=== PATIENT | male | born 1965 | race Two or more races ===

== ENCOUNTER 2019-02-08 07:24 | Emergency (ER) | payer MEDICAID ==
[~2019-02-08] VITALS: Ht 165.1 cm; Wt 74.8 kg
--- NOTE | 2019-02-08 07:33 | Emergency Room Report ---
History of Present Illness General Chief Complaint: epigastric pain Source: Patient Present Illness HPI 53-year-old male presents with epigastric pain x2 weeks, patient has felt a little more fatigued, he endorses some burning chest pain seems to be worsened when he eats or drinks alcohol, he denies any dyspnea on exertion he does endorse some shortness of breath from the reflux, severity is moderate, constant , no alleviating factors. He denies any medical problems he states that his mother has diabetes and he denies any cardiac history in his family he has never had a stress test. Allergies: Coded Allergies: No Known Allergies (Unverified , 02/08/19) Patient History Past Medical History: see triage record Social History: Reports: smoking, alcohol use Reviewed Nursing Documentation: PMH: Agreed; PSxH: Agreed Review of Systems All Other Systems: negative except mentioned in HPI Physical Exam Vital Signs Date Time Temp Pulse Resp B/P (MAP) Pulse Ox O2 Delivery O2 Flow Rate FiO2 02/08/19 07:34 98.8 60 18 148/85 (106) 97 Room Air Sp02 EP Interpretation: reviewed, normal General Appearance: well appearing, no apparent distress, alert Head: normocephalic, atraumatic Eyes: bilateral eye PERRL, bilateral eye EOMI ENT: uvula midline, moist mucus membranes Neck: supple, thyroid normal, supple/symm/no masses Respiratory: lungs clear, no respiratory distress, no retraction, no accessory muscle use Cardiovascular #1: normal peripheral pulses, regular rate, rhythm, no edema, no gallop, no murmur Gastrointestinal: non tender, soft, no guarding, no rebound Musculoskeletal: normal inspection Neurologic: alert, oriented x3 Psychiatric: mood/affect normal Skin: no rash, warm/dry Medical Decision Making Diagnostic Impression: Primary Impression: Chest pain Qualified Codes: R07.9 - Chest pain, unspecified ER Course 53-year-old male presents with atypical chest pain, no dyspnea on exertion, has been constant for 2 weeks was recently evaluated at an outside hospital with a negative work-up. No evidence of ACS, pulmonary embolism, pneumothorax, pneumonia. Historically not abrupt in onset, tearing or ripping, pulses symmetric, no evidence of aortic dissection. EKG, chest x-ray, troponin all negative Given GI cocktail reevaluation 8:37 AM, his symptoms have significantly improved Patient possibly with gastritis Counseled patient to have outside stress test as well as follow-up with GI doctor Disposition home with return precautions Laboratory Tests Test 02/08/19 07:40 White Blood Count 5.8 K/UL (4.8-10.8) Red Blood Count 5.94 M/UL (4.70-6.10) Hemoglobin 15.6 G/DL (14.2-18.0) Hematocrit 49.6 % (42.0-52.0) Mean Corpuscular Volume 83 FL (80-99) Mean Corpuscular Hemoglobin 26.3 PG (27.0-31.0) L Mean Corpuscular Hemoglobin Concent 31.5 G/DL (32.0-36.0) L Red Cell Distribution Width 13.1 % (11.6-14.8) Platelet Count 238 K/UL (150-450) Mean Platelet Volume 7.0 FL (6.5-10.1) Neutrophils (%) (Auto) 66.5 % (45.0-75.0) Lymphocytes (%) (Auto) 23.9 % (20.0-45.0) Monocytes (%) (Auto) 5.9 % (1.0-10.0) Eosinophils (%) (Auto) 2.6 % (0.0-3.0) Basophils (%) (Auto) 1.1 % (0.0-2.0) Prothrombin Time 10.2 SEC (9.30-11.50) Prothrombin Time INR 1.0 (0.9-1.1) PTT 25 SEC (23-33) Sodium Level 142 MMOL/L (136-145) Potassium Level 4.1 MMOL/L (3.5-5.1) Chloride Level 108 MMOL/L (98-107) H Carbon Dioxide Level 25 MMOL/L (21-32) Anion Gap 10 mmol/L (5-15) Blood Urea Nitrogen 15 mg/dL (7-18) Creatinine 0.7 MG/DL (0.55-1.30) Estimate Glomerular Filtration Rate > 60 mL/min (>60) Glucose Level 108 MG/DL (74-106) H Calcium Level 8.8 MG/DL (8.5-10.1) Total Bilirubin 0.5 MG/DL (0.2-1.0) Aspartate Amino Transferase (AST) < 5 U/L (15-37) L Alanine Aminotransferase (ALT) 45 U/L (12-78) Alkaline Phosphatase 139 U/L (46-116) H Total Creatine Kinase 161 U/L (26-308) Creatine Kinase MB 1.1 NG/ML (0.0-3.6) Creatine Kinase MB Relative Index 0.6 Troponin I 0.000 ng/mL (0.000-0.056) Pro-B-Type Natriuretic Peptide 44 pg/mL (0-125) Total Protein 8.0 G/DL (6.4-8.2) Albumin 4.1 G/DL (3.4-5.0) Globulin 3.9 g/dL Lipase 183 U/L (73-393) Thyroid Stimulating Hormone (TSH) 2.853 uiU/mL (0.358-3.740) Free Thyroxine Pending Free Triiodothyronine 3.1 pg/mL (2.3-4.2) EKG Diagnostic Results EKG Time: 07:31 EP Interpretation: NSR, rate 60, QTc 402, no acute ST elevations, normal axis Rhythm Strip Diag. Results Rhythm Strip Time: 07:44 EP Interpretation: yes Rate: 60 Rhythm: NSR, no PVC's, no ectopy Chest X-Ray Diagnostic Results Chest X-Ray Diagnostic Results : Chest X-Ray Ordered: Yes # of Views/Limited/Complete: 1 View Indication: Chest Pain EP Interpretation: Yes Interpretation: no consolidation, no effusion, no pneumothorax, no acute cardiopulmonary disease Impression: No acute disease Electronically Signed by: Jaydon Hayes MD Disposition: HOME, SELF-CARE Condition: Stable Scripts Famotidine (FAMOTIDINE) 20 Mg Tablet 20 MG ORAL TWICE A DAY, #60 TAB 0 Refills Prov: Jaydon Hayes MD 02/08/19 Referrals: [facility] Patient Instructions: Heartburn, Nonspecific Chest Pain Additional Instructions: The patient was provided with discharge instructions, notified to follow-up with a primary care doctor and or specialist in the next 24-48 hours, and to return to the ED if they have worsening of their symptoms. Please note that this report is being documented using [employer] technology. This can lead to erroneous entry secondary to incorrect interpretation by the dictating instrument. Jaydon Hayes MD Feb 08, 2019 07:33
[2019-02-08 07:45] VITALS: BP 157/71
[2019-02-08] MEDS ORDERED: Lidocaine 2% Visc 15ml soln ORAL ONE (07:45)
[2019-02-08] MEDS ORDERED: Mylanta II UD 30ml ORAL ONE (07:45)
[2019-02-08 07:49] LABS: BASOPHILS % (AUTO) 1.1 % (0.0-2.0); EOSINOPHILS % (AUTO) 2.6 % (0.0-3.0); HEMATOCRIT 49.6 % (42.0-52.0); HEMOGLOBIN 15.6 G/DL (14.2-18.0); LYMPHOCYTES % (AUTO) 23.9 % (20.0-45.0); MEAN CORPUSCULAR VOLUME 83 FL (80-99); MONOCYTES % (AUTO) 5.9 % (1.0-10.0); NEUTROPHILS % (AUTO) 66.5 % (45.0-75.0); PLATELET COUNT 238 K/UL (150-450); RED BLOOD COUNT 5.94 M/UL (4.70-6.10); RED CELL DISTRIBUTION WIDTH 13.1 % (11.6-14.8); WHITE BLOOD COUNT 5.8 K/UL (4.8-10.8)
--- NOTE | 2019-02-08 07:49 | NUR ---
ED Nurse Note: Patient walked in to ER from home for chest pain and abdominal pain for 2 weeks. pt aao x4 and ambulatory. skin clean and intact. calm and cooperative. no acute distress noted at this time. pt is in gown and on doll dresser.
--- NOTE | 2019-02-08 07:58 | NUR ---
ED Nurse Note: x-ray at bedside.
[2019-02-08 08:07] LABS: BLOOD UREA NITROGEN 15 mg/dL (7-18); CHLORIDE 108 MMOL/L (98-107); POTASSIUM 4.1 MMOL/L (3.5-5.1); SODIUM 142 MMOL/L (136-145)
[2019-02-08 08:15] LABS: ALANINE AMINOTRANSFERASE 45 U/L (12-78); ALBUMIN 4.1 G/DL (3.4-5.0); ALKALINE PHOSPHATASE 139 U/L (46-116); ANION GAP 10 mmol/L (5-15); ASPARTATE AMINO TRANSFERASE < 5 U/L (15-37); BILIRUBIN,TOTAL 0.5 MG/DL (0.2-1.0); CALCIUM 8.8 MG/DL (8.5-10.1); CARBON DIOXIDE 25 MMOL/L (21-32); CREATINE KINASE 161 U/L (26-308); CREATININE 0.7 MG/DL (0.55-1.30)
[2019-02-08] MEDS ORDERED: FAMOTIDINE20 MG ORAL (08:40)
[2019-02-08 09:12] LABS: CKMB 1.1 NG/ML (0.0-3.6)
[2019-02-08 09:49] VITALS: BP 107/61
--- NOTE | 2019-02-08 09:51 | NUR ---
ED Nurse Note: Pt cleared by health care Provider for discharge. DC instructions/prescription was given and explained to pt and verbalized understanding of teachings. All medical deviecs such as ID band removed. Pt is AAO x4, ambulatory and left with all personal belongings.
--- NOTE | 2019-02-08 11:18 | Diagnostic Imaging Report ---
Indication: Chest pain Technique: One view of the chest Comparison: none Findings: Lungs and pleural spaces are clear. Heart size is normal. There is minimal atelectasis at the left lung base Impression: No acute process
--- NOTE | 2019-02-08 11:53 | Cardiology Report ---
APPROVED REPORT EKG Measurement Heart [id number] Normal sinus rhythm Normal ECG
== END 2019-02-08 09:50 | disposition home or self-care (01) ==
LOC: EMR 08:05
DX: R07.9 Chest pain, unspecified (principal); F17.200 Nicotine dependence, unspecified, uncomplicated
CPT/HCPCS: 36415; 71045; 80053; 82550; 82553; 83690; 83880; 84439; 84443; 84481; 84484; 85025; 85610; 85730; 93005; 96361; 96374; 96375; J2405; S0028; Z7502; 99284

== ENCOUNTER 2019-03-06 22:13 | Emergency (ER) | payer MEDICAID ==
[~2019-03-06] VITALS: Ht 160 cm; Wt 72.6 kg
[~2019-03-06 22:13] MED LIST: FAMOTIDINE20 MG ORAL
--- NOTE | 2019-03-06 22:20 | NUR ---
ED Nurse Note: Patient has complaints of chest pain x 1 day with nausea and vomitting.
--- NOTE | 2019-03-06 22:36 | Emergency Room Report ---
History of Present Illness General Chief Complaint: Chest Pain Source: Patient Present Illness HPI Disclaimer: Please note that this report is being documented using [employer] technology. This can lead to erroneous entry secondary to incorrect interpretation by the dictating instrument. HPI: 53-year-old male with a history of anxiety previously treated with Klonopin presents for evaluation of chest pain, cough, vomiting and diarrhea. States he has had a nonproductive cough without fever for the past week however seems to be getting worse over the past few days. Today as he was getting ready for bed approximately 2 hours ago he started to feel a sharp stabbing pain in the left chest wall that was exacerbated by movement and relieved by rest. He denies any new shortness of breath. He had an episode of nonbloody, nonbilious emesis as well as some loose stools throughout the day today. States he feels like he was having an anxiety attack at home and came to the emergency department for evaluation. He noted some numbness and tingling in his fingertips and around his mouth. Denies diaphoresis, loss of consciousness , head injury or chest wall injury. He was seen in the emergency department for chest pain and gastritis several weeks ago and states it is somewhat similar to that presentation however slightly more intense and now with vomiting and diarrhea. He has not yet been able to see his PMD. Ran out of Klonopin approximately 10 days ago. PMH: Denies PSH: Denies Allergies: Denies Social Hx: Occasional alcohol use Allergies: Coded Allergies: No Known Allergies (Unverified , 02/08/19) Nursing Documentation-PMH Past Medical History: No Stated History Review of Systems All Other Systems: negative except mentioned in HPI Physical Exam Vital Signs Date Time Temp Pulse Resp B/P (MAP) Pulse Ox O2 Delivery O2 Flow Rate FiO2 03/06/19 22:14 97.5 71 19 147/95 (112) 95 Room Air General: Awake and alert, no acute distress HEENT: NC/AT. EOMI. mucous membranes Neck: Supple, trachea midline Chest Wall: No tenderness, no deformity Cardiovascular: RRR. S1 and S2 normal. No murmur appreciated Resp: Normal work of breathing. No cough, wheezing or crackles appreciated Abdomen: Abdomen is soft, nondistended. Nontender Skin: Intact. No abrasions, laceration or rash over the exposed skin MSK: Normal tone and bulk. Moving all extremities. No obvious deformity. Neuro: Awake and alert. Mentating appropriately. Medical Decision Making Diagnostic Impression: Primary Impression: Nausea vomiting and diarrhea ER Course 53-year-old male presenting for evaluation of 1 week cough and 2 hours of sharp stabbing left-sided chest pain, nausea with vomiting and loose stools throughout the day today. Differential includes but is not limited to ACS, angina, anxiety, gastritis, gastroenteritis, GERD, dehydration, musculoskeletal pain, viral syndrome, pneumonia, bronchitis, pneumothorax, PE. With a prolonged cough pneumonia must be evaluated for though given the GI symptoms started today dehydration and gastroenteritis likely from a viral cause her most likely. The patient's vital signs are within normal limits he has no risk factors for pulmonary embolism. We will start a broad cardiac and infectious work-up including EKG, chest x-ray, broad labs. Will give IV fluids for hydration. Antiemetics for nausea. Toradol for pain. Laboratory Tests Test 03/06/19 22:38 03/07/19 01:35 White Blood Count 7.7 K/UL (4.8-10.8) Red Blood Count 5.47 M/UL (4.70-6.10) Hemoglobin 14.5 G/DL (14.2-18.0) Hematocrit 45.1 % (42.0-52.0) Mean Corpuscular Volume 82 FL (80-99) Mean Corpuscular Hemoglobin 26.5 PG (27.0-31.0) L Mean Corpuscular Hemoglobin Concent 32.1 G/DL (32.0-36.0) Red Cell Distribution Width 11.7 % (11.6-14.8) Platelet Count 259 K/UL (150-450) Mean Platelet Volume 6.3 FL (6.5-10.1) L Neutrophils (%) (Auto) 65.5 % (45.0-75.0) Lymphocytes (%) (Auto) 22.2 % (20.0-45.0) Monocytes (%) (Auto) 8.4 % (1.0-10.0) Eosinophils (%) (Auto) 2.9 % (0.0-3.0) Basophils (%) (Auto) 0.9 % (0.0-2.0) Sodium Level 138 MMOL/L (136-145) Potassium Level 3.8 MMOL/L (3.5-5.1) Chloride Level 105 MMOL/L (98-107) Carbon Dioxide Level 24 MMOL/L (21-32) Anion Gap 9 mmol/L (5-15) Blood Urea Nitrogen 18 mg/dL (7-18) Creatinine 0.8 MG/DL (0.55-1.30) Estimate Glomerular Filtration Rate > 60 mL/min (>60) Glucose Level 115 MG/DL (74-106) H Calcium Level 9.1 MG/DL (8.5-10.1) Total Bilirubin 0.2 MG/DL (0.2-1.0) Aspartate Amino Transferase (AST) 24 U/L (15-37) Alanine Aminotransferase (ALT) 53 U/L (12-78) Alkaline Phosphatase 164 U/L (46-116) H Total Creatine Kinase 112 U/L (26-308) Creatine Kinase MB 1.7 NG/ML (0.0-3.6) Creatine Kinase MB Relative Index 1.5 Troponin I 0.000 ng/mL (0.000-0.056) 0.000 ng/mL (0.000-0.056) Total Protein 7.4 G/DL (6.4-8.2) Albumin 3.8 G/DL (3.4-5.0) Globulin 3.6 g/dL Albumin/Globulin Ratio 1.1 (1.0-2.7) Lipase 158 U/L (73-393) EKG Diagnostic Results EKG Time: 22:23 Rate: normal Rhythm: NSR ST Segments: no acute changes Other Impression Sinus rhythm, normal axis, normal intervals, no ST segment changes Rhythm Strip Diag. Results Rhythm Strip Time: 22:23 EP Interpretation: yes Rate: 70s Rhythm: NSR, no PVC's, no ectopy Chest X-Ray Diagnostic Results Chest X-Ray Diagnostic Results : # of Views/Limited/Complete: 1 View Indication: Chest Pain EP Interpretation: Yes Interpretation: no effusion, no pneumothorax, other - Possible consolidation in the left lower lobe Impression: Other - Possible atelectasis versus consolidation Electronically Signed by: Electronically signed by Dr. Deon Subramanian Reevaluation Time: 02:06 Last Vital Signs Date Time Temp Pulse Resp B/P (MAP) Pulse Ox O2 Delivery O2 Flow Rate FiO2 03/06/19 22:14 97.5 71 19 147/95 (112) 95 Room Air Reevaluation Impression EKG unremarkable, labs have returned largely within normal limits, troponins are negative x2. Chest x-ray shows a possible consolidation with atelectasis in the left lower lobe however radiology interpretation shows that it is unchanged from a previous x-ray and may represent either a pericardial fat pad or atelectasis. They recommend follow-up not emergently with unenhanced CT in 8 to 10 weeks to reevaluate. Given his prolonged cough we will treat with a short course of antibiotics. He also be treated with Zofran and antacids for possible gastroenteritis. We will follow-up with PMD as scheduled. Discussed reasons to return to the emergency department. He understands and agrees with this treatment plan. Disposition: HOME, SELF-CARE Condition: Stable Scripts Omeprazole (OMEPRAZOLE) 20 Mg Capsule.dr 20 MG ORAL DAILY for 14 Days, #14 CAP Prov: Deon Subramanian MD 03/07/19 Ondansetron Odt* (ZOFRAN ODT*) 4 Mg Tab.rapdis 4 MG BC EVERY 6 HOURS PRN for Nausea & Vomiting, #20 TAB 0 Refills Prov: Deon Subramanian MD 03/07/19 Azithromycin* (ZITHROMAX*) 250 Mg Tablet 250 MG ORAL DAILY for 5 Days, #6 TAB 0 Refills Take two tables once daily for 1 day, then one tablet once daily for 4 days. Prov: Deon Subramanian MD 03/07/19 Deon Subramanian MD Mar 06, 2019 22:36
[2019-03-06 22:41] VITALS: BP 147/95
[2019-03-06] MEDS ORDERED: Ketorolac 30mg Inj IV ONE (22:45)
[2019-03-06 22:53] VITALS: BP 130/85
[2019-03-06 22:57] LABS: BASOPHILS % (AUTO) 0.9 % (0.0-2.0); EOSINOPHILS % (AUTO) 2.9 % (0.0-3.0); HEMATOCRIT 45.1 % (42.0-52.0); HEMOGLOBIN 14.5 G/DL (14.2-18.0); LYMPHOCYTES % (AUTO) 22.2 % (20.0-45.0); MEAN CORPUSCULAR VOLUME 82 FL (80-99); MONOCYTES % (AUTO) 8.4 % (1.0-10.0); NEUTROPHILS % (AUTO) 65.5 % (45.0-75.0); PLATELET COUNT 259 K/UL (150-450); RED BLOOD COUNT 5.47 M/UL (4.70-6.10); RED CELL DISTRIBUTION WIDTH 11.7 % (11.6-14.8); WHITE BLOOD COUNT 7.7 K/UL (4.8-10.8)
[2019-03-06 23:08] LABS: ANION GAP 9 mmol/L (5-15); BLOOD UREA NITROGEN 18 mg/dL (7-18); CALCIUM 9.1 MG/DL (8.5-10.1); CARBON DIOXIDE 24 MMOL/L (21-32); CHLORIDE 105 MMOL/L (98-107); CREATININE 0.8 MG/DL (0.55-1.30); POTASSIUM 3.8 MMOL/L (3.5-5.1); SODIUM 138 MMOL/L (136-145)
[2019-03-06 23:22] LABS: ALANINE AMINOTRANSFERASE 53 U/L (12-78); ALBUMIN 3.8 G/DL (3.4-5.0); ALBUMIN/GLOBULIN RATIO 1.1 (1.0-2.7); ALKALINE PHOSPHATASE 164 U/L (46-116); ASPARTATE AMINO TRANSFERASE 24 U/L (15-37); BILIRUBIN,TOTAL 0.2 MG/DL (0.2-1.0); CKMB 1.7 NG/ML (0.0-3.6); CREATINE KINASE 112 U/L (26-308)
[2019-03-07 00:06] VITALS: BP 121/72
--- NOTE | 2019-03-07 00:09 | NUR ---
ED Nurse Note: Patient tolerated fluids and medication well. Patient is resting comfortably with no s/s/ of acute distress. vital signs stable and documented. CXR completed, awaiting discharge instructions.
--- NOTE | 2019-03-07 00:25 | Diagnostic Imaging Report ---
EXAM: XR Chest, 1 View CLINICAL HISTORY: COUGH TECHNIQUE: Frontal view of the chest. COMPARISON: 02 08 2019 FINDINGS: Lungs: See below. Pleural space: Unremarkable. No pneumothorax. Heart: Mild patchy opacity at the left base laterally similar to the prior study, and potentially bilingual inside sales representative of pericardial fat or atelectasis. Mediastinum: Unremarkable. Bones joints: Unremarkable. IMPRESSION: 1. Mild patchy opacity at the left base laterally similar to the prior study, and potentially bilingual inside sales representative of pericardial fat or atelectasis. 2. Otherwise no acute cardio pulmonary disease. 3. If there is continued concern, consider PA and lateral chest radiographs or CT. 4. Recommend follow-up nonemergent unenhanced CT chest in 8-10 weeks to evaluate resolution of left base finding.
--- NOTE | 2019-03-07 00:57 | NUR ---
ED Nurse Note: Patient and umu reports patient has headache 7/10 on pain scale. Patient usually does not have headache at home. ERMD informed.
[2019-03-07] MEDS ORDERED: Acetaminophen 500mg (ES) tab ORAL ONE (01:00)
[2019-03-07] MEDS ORDERED: OMEPRAZOLE20 M2 ORAL (02:09)
[2019-03-07] MEDS ORDERED: ZITHROMAX250 MG ORAL (02:09)
[2019-03-07] MEDS ORDERED: ONDANSETRON ODT4 MG BC (02:09)
--- NOTE | 2019-03-07 02:28 | NUR ---
ED Nurse Note: Patietn cleared for discharge, verbalized understanding of discharge instructions, ID band removed, Iv removed. PAtient departed with spouse and all belongings.
[2019-03-07 02:29] VITALS: BP 121/72
--- NOTE | 2019-03-09 14:17 | Cardiology Report ---
APPROVED REPORT EKG Measurement Heart [id number] Normal sinus rhythm Normal ECG
== END 2019-03-07 02:29 | disposition home or self-care (01) ==
LOC: EMR 22:49
DX: R11.2 Nausea with vomiting, unspecified (principal); R19.7 Diarrhea, unspecified; R07.9 Chest pain, unspecified; F41.9 Anxiety disorder, unspecified
CPT/HCPCS: 36415; 71045; 80053; 82550; 82553; 83690; 84484; 85025; 93005; 96361; 96374; 96375; J1885; J2405; Z7502; 99284

== ENCOUNTER 2020-05-12 16:50 | Emergency (ER) | payer MEDICAID ==
[~2020-05-12] VITALS: Ht 165.1 cm; Wt 77.1 kg
[~2020-05-12 16:50] MED LIST changes: +BACTRIM-DS1 EA ORAL; +CEPHALEXIN500 MG ORAL; +IBUPROFEN600 MG ORAL; +OMEPRAZOLE20 M2 ORAL; +ONDANSETRON ODT4 MG BC; +ZITHROMAX250 MG ORAL
[2020-05-12 17:20] VITALS: BP 132/81
--- NOTE | 2020-05-12 17:20 | NUR ---
ED Nurse Note: Pt walked into ED with complaint of chest and rib pain for 4 days. Pt states it is sharlene pain mid chest, non radiating. Pt denies nausea, vomiting, diarrhea. He is alert and orientedx4, ambulatory. IV established and blood and urine sent.
--- NOTE | 2020-05-12 17:52 | Emergency Room Report ---
History of Present Illness General Chief Complaint: Pain Source: Patient Present Illness HPI 54 YO male presents to the ED c/o 01/09 in severity Pain in the left side of his abdomen and in the mid chest region x 2 days. pt. reports diarrhea and nausea x 4 days. Pt. denies blood in the stool or vomit. He denies black tarry stools. Pt. 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 Pt. denies being placed on antibiotics. Pt. denies fevers. He reports episode of severe left lower abdominal pain, nausea and some dizziness today. he denies cardiac hx. Pt. also reports an associated progressive RAY which resolved spontaneously. Pt. reports having an intermittent cough usually around mid-day. He denies recent travel or ill con tacts. He denies hematuria, urinary frequency or urgency. He denies back pain. He reports hx of anxiety. He also reports pain in the chest and LLQ with deep inhalation and simultaneous deep LLQ palpation. Pt. reports of all his symptoms the LLQ abdominal pain is the most prominent and bothersome to him. Allergies: Coded Allergies: No Known Allergies (Unverified , 02/08/19) COVID-19 Screening Contact w/high risk pt: No Experienced COVID-19 symptoms?: No COVID-19 Testing performed SLUNK SKINNER: No Patient History Past Medical History: see triage record, diverticulitis Past Surgical History: none Pertinent Family History: none Reviewed Nursing Documentation: PMH: Agreed; PSxH: Agreed Nursing Documentation-PMH Past Medical History: No Stated History Hx Cardiac Problems: No Hx Cancer: No Hx Gastrointestinal Problems: No Hx Neurological Problems: No Review of Systems All Other Systems: negative except mentioned in HPI Physical Exam Vital Signs Date Time Temp Pulse Resp B/P (MAP) Pulse Ox O2 Delivery O2 Flow Rate FiO2 05/12/20 16:55 98.1 65 16 134/86 (102) 97 Room Air Sp02 EP Interpretation: reviewed, normal General Appearance: no apparent distress, alert, GCS 15, non-toxic Head: normocephalic, atraumatic Eyes: bilateral eye normal inspection, bilateral eye PERRL ENT: hearing grossly normal, normal voice Neck: full range of motion Respiratory: chest non-tender, lungs clear, normal breath sounds, no respiratory distress, no accessory muscle use, no wheezing, speaking full sentences, other - no tenderness, pain not reproduced with sternal palpation Cardiovascular #1: regular rate, rhythm, no edema, normal capillary refill Gastrointestinal: normal bowel sounds, soft, tenderness - LLQ and Epigastric TTP, no rebound or peritonitis. No pulsatile mass. Musculoskeletal: back normal, normal range of motion, gait/station normal, non- tender Neurologic: alert, motor strength/tone normal, oriented x3, sensory intact, responsive, speech normal Psychiatric: judgement/insight normal Lymphatic: no adenopathy Medical Decision Making PA Attestation Dr. Pablo Is my supervising Physician whom patient management has been discussed with. Diagnostic Impression: Primary Impression: Nausea vomiting and diarrhea Additional Impression: Abdominal pain Qualified Codes: R10.32 - Left lower quadrant pain ER Course 54 YO male presents to the ED c/o 01/09 in severity Pain in the left side of his abdomen and in the mid chest region x 2 days. pt. reports diarrhea and nausea x 4 days. Pt. denies blood in the stool or vomit. He denies black tarry stools. Pt. reports he has had endoscopy and colonoscopy and was told he has duodenal inflammation and diverticula ( pouches). Pt. denies being placed on antibiotics. Pt. denies fevers. He reports episode of severe left lower abdominal pain, nausea and some dizziness today. he denies cardiac hx. Pt. also reports an associated progressive RAY which resolved spontaneously. Pt. reports having an intermittent cough usually around mid-day. He denies recent travel or ill contacts. He denies hematuria, urinary frequency or urgency. He denies back pain. He reports hx of anxiety. He also reports pain in the chest and LLQ with deep inhalation and simultaneous deep LLQ palpation. Pt. reports of all his symptoms the LLQ abdominal pain is the most prominent and bothersome to him. Ddx considered but are not limited to Diverticulitis, acute appendicitis, diarrhea,UC, PUD, GE, pancreatitis, gallstone, renal calculi, GERD, ME, PE, aortic dissection ( thoracic or abdominal ). Just to name a few. Vital signs: are WNL, pt. is afebrile. H&PE are most consistent with : Nontoxic patient in no acute distress with no signs to suggest acute abdomen at this time. Patient is not diaphoretic, not tachypneic, not in respiratory distress. He is hemodynamically stable. ORDERS: EKG 61 NSR CXR: cardiomegaly, osteopenia and minimal scarring versus subsegmental atelectasis at the left lung base -CBC: anemia- mild, no leukocytosis -CMP: WNL/ unremarkable -lipase: WNL -Troponin: 0.00 - UA: Unremarkable, no RBC's ED INTERVENTIONS: -- -Zofran 4mg -Mylanta -Pepcid 20mg PO -Bentyl PO -Lidocaine viscous PO Pt. reports his symptoms resolved after GI cocktail. d/w pt. that he will be treated for his symptoms but that COVID-19 can also present with GI symptoms and that he should self isolate/quarantine. He does not meet out current criteria for emergent covid testing at our facility due to limited resources, d/w pt. he is stable to have COVID testing performed as an outpatient. D/w pt. the results of his test do not change his treatment plan and he should still quarantine while symptomatic. This patient was evaluated in the context of the global COVID-19 pandemic, which necessitated consideration that the patient might be at risk for infection with the SARS-COV-2 virus that causes COVID-19. Institutional protocols and algorithms that pertaining to the evaluation of patients at risk for COVID-19 are in a state of rapid change based on information released by multiple regulatory bodies including the CDC and federal and state organizations. These policies and algorithms were followed during the patient's care in the emergency department DISCHARGE: At this time pt. is stable for d/c to home. Will provide printed patient care instructions, and any necessary prescriptions. Care plan and follow up instructions have been discussed with the patient prior to discharge. Labs Test 05/12/20 18:25 05/12/20 18:30 White Blood Count 6.5 K/UL (4.8-10.8) Red Blood Count 5.18 M/UL (4.70-6.10) Hemoglobin 13.8 G/DL (14.2-18.0) Hematocrit 41.0 % (42.0-52.0) Mean Corpuscular Volume 79 FL (80-99) Mean Corpuscular Hemoglobin 26.6 PG (27.0-31.0) Mean Corpuscular Hemoglobin Concent 33.6 G/DL (32.0-36.0) Red Cell Distribution Width 14.6 % (11.6-14.8) Platelet Count 204 K/UL (150-450) Mean Platelet Volume 8.8 FL (6.5-10.1) Neutrophils (%) (Auto) 65.7 % (45.0-75.0) Lymphocytes (%) (Auto) 26.8 % (20.0-45.0) Monocytes (%) (Auto) 5.2 % (1.0-10.0) Eosinophils (%) (Auto) 1.6 % (0.0-3.0) Basophils (%) (Auto) 0.7 % (0.0-2.0) Sodium Level 138 MMOL/L (136-145) Potassium Level 4.0 MMOL/L (3.5-5.1) Chloride Level 105 MMOL/L (98-107) Carbon Dioxide Level 26 MMOL/L (21-32) Anion Gap 7 mmol/L (5-15) Blood Urea Nitrogen 19 mg/dL (7-18) Creatinine 0.9 MG/DL (0.55-1.30) Estimat Glomerular Filtration Rate > 60 mL/min (>60) Glucose Level 94 MG/DL (74-106) Calcium Level 8.3 MG/DL (8.5-10.1) Total Bilirubin 0.3 MG/DL (0.2-1.0) Aspartate Amino Transf (AST/SGOT) 23 U/L (15-37) Alanine Aminotransferase (ALT/SGPT) 37 U/L (12-78) Alkaline Phosphatase 150 U/L (46-116) Troponin I 0.000 ng/mL (0.000-0.056) Total Protein 7.2 G/DL (6.4-8.2) Albumin 3.7 G/DL (3.4-5.0) Globulin 3.5 g/dL Albumin/Globulin Ratio 1.1 (1.0-2.7) Lipase 138 U/L (73-393) Urine Color Pale yellow Urine Appearance Clear Urine pH 7 (4.5-8.0) Urine Specific [place] 1.010 (1.005-1.035) Urine Protein Negative (NEGATIVE) Urine Glucose (UA) Negative (NEGATIVE) Urine Ketones Negative (NEGATIVE) Urine Blood Negative (NEGATIVE) Urine Nitrite Negative (NEGATIVE) Urine Bilirubin Negative (NEGATIVE) Urine Urobilinogen Normal MG/DL (0.0-1.0) Urine Leukocyte Esterase Negative (NEGATIVE) EKG Diagnostic Results Troponin ordered: Yes When was troponin ordered?: May 12, 2020 EKG Time: 17:14 Rate: normal - 61 Rhythm: NSR ST Segments: no acute changes ASA given to the pt in ED: No PA Scribe Text This Interpretation was scribed by FORREST Camargo. Chest X-Ray Diagnostic Results Chest X-Ray Diagnostic Results : Chest X-Ray Ordered: Yes # of Views/Limited/Complete: 1 View Indication: Chest Pain EP Interpretation: Yes PA Xray: Interpretation reviewed, by supervising MD, and agrees with findings. Interpretation: no consolidation, no effusion, no pneumothorax, no acute cardiopulmonary disease Impression: No acute disease Electronically Signed by: Tawanna Camargo PA-C Last Vital Signs Date Time Temp Pulse Resp B/P (MAP) Pulse Ox O2 Delivery O2 Flow Rate FiO2 05/12/20 16:55 98.1 65 16 134/86 (102) 97 Room Air Status: improved Disposition: HOME, SELF-CARE Condition: Stable Scripts Mag Hydrox/Aluminum Hyd/Simeth (Mylanta Maximum Strength Liq) 355 Ml Oral.susp 20 ML PO BID, #355 ML Prov: Tawanna Camargo 05/12/20 Famotidine* (Pepcid 20mg tablet*) 20 Mg Tablet 20 MG ORAL TWICE A DAY for Gerd for 7 Days, #14 TAB 0 Refills Prov: Tawanna Camargo 05/12/20 Dicyclomine Hcl* (DICYCLOMINE HCL*) 10 Mg Capsule 10 MG ORAL TID, #9 CAP Prov: Tawanna Camargo 05/12/20 Referrals: NOT CHOSEN IPA/,REFERRING (PCP) Matthew Escobar Comp. [facility] Patient Instructions: Diarrhea, Adult, [id number], Food Choices to Help Relieve Diarrhea, Adult, Nausea and Vomiting, Adult, [id number] Additional Instructions: Take medications as directed. Follow up with a Primary Care Provider in 3-5 days, even if your symptoms have resolved. --Please review list of primary care clinics, if you do not already have a primary care provider Return sooner to ED if new symptoms occur, or current symptoms become worse. - Please note that this Emergency Department Report was dictated using [employer] metal installer technology software, occasionally this can lead to erroneous entry secondary to interpretation by the dictation equipment. Tawanna Camargo May 12, 2020 17:52
--- NOTE | 2020-05-12 17:56 | Diagnostic Imaging Report ---
EXAM: XR Chest, 1 View CLINICAL HISTORY: PAIN TECHNIQUE: Frontal view of the chest. COMPARISON: 03/06/2019. FINDINGS: Lungs: The lungs are well aerated. Minimal scarring at the left lung base. Pleural space: Unremarkable. No pneumothorax. Heart: Mild cardiomegaly. Mediastinum: Unremarkable. Bones/joints: Osteopenia. Soft tissues: Soft tissues are unremarkable. IMPRESSION: 1. Cardiomegaly. 2. Osteopenia. 3. Minimal scarring versus subsegmental atelectasis at the left lung base.
[2020-05-12] MEDS ORDERED: Dicyclomine HCl 10mg/5ml oral soln ORAL ONE (18:15)
[2020-05-12] MEDS ORDERED: Lidocaine 2% Visc 15ml soln ORAL ONE (18:15)
[2020-05-12] MEDS ORDERED: Mylanta II UD 30ml ORAL ONE (18:15)
[2020-05-12 19:24] LABS: ANION GAP 7 mmol/L (5-15); BLOOD UREA NITROGEN 19 mg/dL (7-18); CALCIUM 8.3 MG/DL (8.5-10.1); CARBON DIOXIDE 26 MMOL/L (21-32); CHLORIDE 105 MMOL/L (98-107); CREATININE 0.9 MG/DL (0.55-1.30); SODIUM 138 MMOL/L (136-145)
[2020-05-12 19:27] VITALS: BP 128/86
[2020-05-12 19:27] LABS: ALANINE AMINOTRANSFERASE 37 U/L (12-78); ALBUMIN 3.7 G/DL (3.4-5.0); ALBUMIN/GLOBULIN RATIO 1.1 (1.0-2.7); ALKALINE PHOSPHATASE 150 U/L (46-116); ASPARTATE AMINO TRANSFERASE 23 U/L (15-37); BILIRUBIN,TOTAL 0.3 MG/DL (0.2-1.0)
[2020-05-12 19:44] LABS: BASOPHILS % (AUTO) 0.7 % (0.0-2.0); EOSINOPHILS % (AUTO) 1.6 % (0.0-3.0); HEMOGLOBIN 13.8 G/DL (14.2-18.0); LYMPHOCYTES % (AUTO) 26.8 % (20.0-45.0); MEAN CORPUSCULAR VOLUME 79 FL (80-99); MONOCYTES % (AUTO) 5.2 % (1.0-10.0); NEUTROPHILS % (AUTO) 65.7 % (45.0-75.0); PLATELET COUNT 204 K/UL (150-450); RED BLOOD COUNT 5.18 M/UL (4.70-6.10); RED CELL DISTRIBUTION WIDTH 14.6 % (11.6-14.8); WHITE BLOOD COUNT 6.5 K/UL (4.8-10.8)
[2020-05-12 19:50] LABS: APPEARANCE,URINE CLEAR; BILIRUBIN, URINE NEGATIVE (NEGATIVE); COLOR,URINE PALE YELLOW; GLUCOSE, URINE (UA) NEGATIVE (NEGATIVE); KETONES,URINE NEGATIVE (NEGATIVE); LEUKOCYTE ESTERASE ,URINE NEGATIVE (NEGATIVE); NITRITE,URINE NEGATIVE (NEGATIVE); PH,URINE 7 (4.5-8.0); PROTEIN,URINE NEGATIVE (NEGATIVE); UROBILINOGEN,URINE NORMAL MG/DL (0.0-1.0)
[2020-05-12] MEDS ORDERED: DICYCLOMINE HCL10 MG ORAL (20:23)
[2020-05-12] MEDS ORDERED: MYLANTA MAXIMU355 ML PO (20:23)
[2020-05-12] MEDS ORDERED: FAMOTIDINE20 MG ORAL (20:23)
== END 2020-05-12 18:45 | disposition home or self-care (01) ==
LOC: EMR 17:15
DX: R11.2 Nausea with vomiting, unspecified (principal); R19.7 Diarrhea, unspecified; R10.32 Left lower quadrant pain
CPT/HCPCS: 36415; 71045; 80053; 81003; 83690; 84484; 85025; 93005; Z7502; 99284